=== PATIENT | female | born 1985 | race Two or more races ===

== ENCOUNTER 2022-05-14 18:35 | Emergency (ER) | payer OTHER, MEDICAID, SELFPAY ==
--- NOTE | ~2022-05-14 | CT_ITS ---
EXAMINATION: CT HEAD WITHOUT CONTRAST CLINICAL INFORMATION: Head injury. Pain. COMPARISON: None TECHNIQUE: Contiguous axial imaging was performed from the skull base to vertex without intravenous administration of contrast. Coronal and sagittal reformatted images are performed at CT scanner This CT examination was performed using dose optimization techniques as appropriate, variously including the following: *Automated exposure control *Adjustment of mA and/or kV according to patient size (this includes techniques or standardized protocols for targeted exams where dose is matched to indication/reason for exam; i.e. extremities or head) *Use of iterative reconstruction technique DLP: 704. mGy-cm FINDINGS: There is no evidence of acute intracranial hemorrhage or territorial infarction. No abnormal mass effect or midline shift is seen. De La Cruz to white matter differentiation is well preserved. No extra-axial fluid collections are identified. The ventricles are normal in size. There is no abnormal attenuation within the brain parenchyma. The osseous structures and soft tissues are normal. The mastoid air cells and visualized portions of the paranasal sinuses are well aerated. CT/CT head/brain wo con IMPRESSION: No acute intracranial pathology.
[2022-05-14 18:41] VITALS: BP 148/90; PULSE 92; O2SAT 99
[2022-05-14 21:10] VITALS: BP 114/59; PULSE 74; RESP 18; TEMP 36.8; O2SAT 98; BMI 49.8
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
[2022-05-15] MEDS: Ibuprofen 800 MG TABLET PO (00:11)
[2022-05-15] MEDS: Diphth,Pertus(ACell),Tet Adult 0.5 ML SYRINGE IM (00:12)
--- NOTE | 2022-05-15 00:15 | PC.NURSE ---
medicated per provider order, tdap given right deltoid, pt tolerated well.
[2022-05-15 00:31] VITALS: BP 125/63; PULSE 75; RESP 16; O2SAT 98
== END 2022-05-15 00:33 | disposition home or self-care (01) ==
LOC: HO.ED 05-15 00:26
PROVIDERS: Emergency Provider Emergency Medicine
DX: S06.0X0A Concussion without loss of consciousness, initial encounter (principal); S01.112A Laceration without foreign body of left eyelid and periocular area, initial encounter; W20.8XXA Other cause of strike by thrown, projected or falling object, initial encounter; Y93.89 Activity, other specified; Y92.832 Beach as the place of occurrence of the external cause; Y99.8 Other external cause status
CPT/HCPCS: 12011; 70450; 90471; 90715; 99284

== ENCOUNTER 2022-11-11 18:36 | Emergency (ER) | payer MEDICAID, SELFPAY ==
[2022-11-11 19:33] VITALS: BP 152/101; PULSE 78; RESP 18; TEMP 36.6; O2SAT 99; BMI 51.5
--- NOTE | 2022-11-11 19:34 | ED.HA ---
HPI - Headache General Chief Complaint: Headache <FARHANA Hernandez - Last Filed: 11/11/22 19:39> Stated Complaint: migraine <FARHANA Hernandez Last Filed: 11/11/22 19:39> Time Seen by Provider: 11/11/22 21:01 <FARHANA Hernandez - Last Filed: 11/11/22 19:39> Source: patient <Katherine Sanchez NP - Last Filed: 11/12/22 01:25> Mode of arrival: ambulatory <Katherine Sanchez NP - Last Filed: 11/12/22 01:25> Limitations: no limitations <Katherine Sanchez NP - Last Filed: 11/12/22 01:25> History of Present Illness HPI Narrative: 37-year-old female presents with a migraine headache since Friday. She has been taking Topamax with poor effect. She states to have photosensitivity, sensitivity to sound, nausea vomiting and difficulty sleeping because of the pain. This headache is consistent with prior headaches. <Katherine Sanchez NP - Last Filed: 11/12/22 01:25> MD elicited complaint: migraine <DAVID Maria Last Filed: 11/12/22 01:25> Onset (ago): day(s) <DAVID Maria Last Filed: 11/12/22 01:25> Onset description: gradually <DAVID Maria Last Filed: 11/12/22 01:25> Location: generalized <Katherine Sanchez NP - Last Filed: 11/12/22 01:25> Severity: severe <Katherine Sanchez NP - Last Filed: 11/12/22 01:25> Pain scale (0-10): 10 <DAVID Maria Last Filed: 11/12/22 01:25> Quality & Timing: throbbing, pulsatile, steady, squeezing, constant, progressively worsening and similar to previous headaches <Katherine Sanchez NP - Last Filed: 11/12/22 01:25> Exacerbating factors: movement of head/neck, light and noise <DAVID Maria Last Filed: 11/12/22 01:25> Relieving factors: nothing <DAVID Maria Last Filed: 11/12/22 01:25> Context: occurred at rest <DAVID Maria Last Filed: 11/12/22 01:25> Associated symptoms: nausea, vomiting, photophobia and sensitivity to sound <DAVID Maria Last Filed: 11/12/22 01:25> Treatments prior to arrival: acetaminophen, ibuprofen, prescription analgesic and migraine medication <DAVID Maria Last Filed: 11/12/22 01:25> Related Data Home Medications: Previous Rx's Medication Instructions Recorded sumatriptan succinate 50 mg tablet See Rx Instructions PO .COMPLEX 11/11/22 (Imitrex) #14 tabs <FARHANA Hernandez - Last Filed: 11/11/22 19:39> Allergies/Adverse Reactions: Allergies Allergy/AdvReac Type Severity Reaction Status Date / Time shrimp Allergy Severe ANAPHYLAXIS Verified 05/14/22 21:08 <FARHANA Hernandez Last Filed: 11/11/22 19:39> Review of Systems Review of Systems: Constitutional: No Fever, No Chills ENT/Mouth: Positive photosensitivity, positive sound sensitivity, No Ear Pain, No Hoarseness, No sore throat Eyes: No Eye Pain, No Swelling, No Redness, No Foreign Body Cardiovascular: No Chest Pain, No SOB Respiratory: No Cough, No Dyspnea Gastrointestinal: Positive Nausea, positive Vomiting, No Diarrhea, No abdominal Pain Genitourinary: No Dysuria, No Hematuria Musculoskeletal: No joint pain, No Myalgias, No Joint Swelling Skin: No Skin lacerations, No rash Neuro: No Weakness, No Numbness, No Paresthesias, No Loss of Consciousness, No Dizziness, positive migraine Headache <DAVID Maria Last Filed: 11/12/22 01:25> Yes all other systems are reviewed and are negative <DAVID Maria Last Filed: 11/12/22 01:25> PMFSH Past Medical History Attestation statement: The following information was validated with the patient. <DAVID Maria Last Filed: 11/12/22 01:25> Source: old records reviewed <DAVID Maria Last Filed: 11/12/22 01:25> Social History Social History: Social History Patient Tobacco Use Status: Never used Tobacco Advance Directives: No Advance Directives Information Provided: Yes <FARHANA Hernandez - Last Filed: 11/11/22 19:39> Physical Exam Vital Signs: Vital Signs: Last Vital Signs Temp 97.8 F 11/11/22 19:33 Pulse 52 11/11/22 21:50 Resp 32 H 11/11/22 21:50 BP 148/94 H 11/11/22 21:50 Pulse Ox 98 11/11/22 21:12 O2 Del Method 11/11/22 21:12 BMI result Body Mass Index 51.5 <FARHANA Hernandez - Last Filed: 11/11/22 19:39> Vital Signs: Last Vital Signs Temp 97.8 F 11/11/22 19:33 Pulse 52 11/11/22 21:50 Resp 32 H 11/11/22 21:50 BP 148/94 H 11/11/22 21:50 Pulse Ox 98 11/11/22 21:12 O2 Del Method 11/11/22 21:12 BMI result Body Mass Index 51.5 <Katherine Sanchez NP - Last Filed: 11/12/22 01:25> Appearance: Alert. Oriented X3. Moderate distress. Eyes: Pupils equal, round and reactive to light. ENT: Pharynx normal. Neck: Normal inspection. Neck supple. CVS: Normal heart rate and rhythm. Pulses normal. Respiratory: No respiratory distress. Breath sounds normal. Abdomen: Soft and nontender. Skin: Skin warm and dry. Normal skin color. Normal skin turgor. Extremities: Gait well balanced well coordinated. Neuro: No motor deficit. No sensory deficit. Cranial nerves 2-12 intact. <Katherine Sanchez NP - Last Filed: 11/12/22 01:25> Course Course Course Narrative: RME--37 yo F w/PMHx migraines c/o Migraine LOPEZ x 1 week w/assoc nausea and room spinning dizziness, worse with head movement. Takes Topamax w/o relief. Took Motrin w/o relief at 1400. Denies visual loss, vomiting, weakness HTNsive in triage, wearing sunglasses during eval, ambulating with steady gait Labs, PO Fioicet and PO Meclizine ordered <FARHANA Hernandez - Last Filed: 11/11/22 19:39> RME--37 yo F w/PMHx migraines c/o Migraine LOPEZ x 1 week w/assoc nausea and room spinning dizziness, worse with head movement. Takes Topamax w/o relief. Took Motrin w/o relief at 1400. Denies visual loss, vomiting, weakness HTNsive in triage, wearing sunglasses during eval, ambulating with steady gait Labs, PO Fioicet and PO Meclizine ordered 37-year-old female presents with migraine for 1 week. Considering that this migraine is consistent with prior, I do not feel CT scan is indicated at this time. Will order migraine medications, Reglan, fluids, Benadryl, dexamethasone. I do feel that this patient should follow-up with primary care physician as Topamax is ineffective for this patient's migraines. Patient is afebrile, appears nontoxic, neurovascularly intact, no pain on extraocular movements, no nystagmus. No nuchal rigidity, no vertebral tenderness or step-offs. No indication of meningeal signs. 22:44 patient feels better after medication regimen. Will give prescription for Imitrex and plan of care discharge home. Patient verbalized understanding of and agrees to plan of care. Verbalized understanding of signs symptoms indicating need for emergent intervention. Please note, vital signs at 21:50 indicate a respiration rate of 32. This is inaccurate. Upon discharge, patient had even unlabored respirations at 18 respirations per minute. <Katherine Sanchez NP - Last Filed: 11/12/22 01:25> Medications Administered Discontinued Medications Generic Name Dose Route Start Last Admin Trade Name Freq PRN Reason Stop Dose Admin Acetaminophen/Butalbital/Caffeine 1 tab 11/11/22 19:36 11/11/22 20:58 Butalb/Acetamin/Caff 50/325/40 Tablet PO 11/11/22 19:37 1 tab ONCE ONE Administration Diphenhydramine HCl 25 mg 11/11/22 21:29 11/11/22 21:40 Diphenhydramine Hcl 50 Mg/Ml Vial IVPUSH 11/11/22 21:30 25 mg ONCE ONE Administration Sodium Chloride 1,000 mls @ 999 mls/hr 11/11/22 21:45 11/11/22 21:50 Ns IV 11/11/22 22:45 999 mls/hr .Q1H1M MIGUEL A Administration Ketorolac Tromethamine 30 mg 11/11/22 21:29 11/11/22 21:41 Ketorolac Tromethamine 30 Mg/Ml Vial IVPUSH 11/11/22 21:30 30 mg ONCE ONE Administration Meclizine HCl 25 mg 11/11/22 19:36 11/11/22 20:58 Meclizine Hcl 25 Mg Tablet PO 11/11/22 19:37 25 mg ONCE ONE Administration Metoclopramide HCl 10 mg 11/11/22 21:29 11/11/22 21:41 Metoclopramide Hcl 10 Mg/2 Ml Vial IVPUSH 11/11/22 21:30 10 mg ONCE ONE Administration Sumatriptan Succinate 6 mg 11/11/22 21:29 11/11/22 21:41 Sumatriptan Succinate 6 Mg/0.5 Ml Vial SUBCUT 11/11/22 21:30 6 mg ONCE ONE Administration <FARHANA Hernandez - Last Filed: 11/11/22 19:39> Medications Administered Discontinued Medications Generic Name Dose Route Start Last Admin Trade Name Andrewq PRN Reason Stop Dose Admin Acetaminophen/Butalbital/Caffeine 1 tab 11/11/22 19:36 11/11/22 20:58 Butalb/Acetamin/Caff 50/325/40 Tablet PO 11/11/22 19:37 1 tab ONCE ONE Administration Diphenhydramine HCl 25 mg 11/11/22 21:29 11/11/22 21:40 Diphenhydramine Hcl 50 Mg/Ml Vial IVPUSH 11/11/22 21:30 25 mg ONCE ONE Administration Sodium Chloride 1,000 mls @ 999 mls/hr 11/11/22 21:45 11/11/22 21:50 Ns IV 11/11/22 22:45 999 mls/hr .Q1H1M MIGUEL A Administration Ketorolac Tromethamine 30 mg 11/11/22 21:29 11/11/22 21:41 Ketorolac Tromethamine 30 Mg/Ml Vial IVPUSH 11/11/22 21:30 30 mg ONCE ONE Administration Meclizine HCl 25 mg 11/11/22 19:36 11/11/22 20:58 Meclizine Hcl 25 Mg Tablet PO 11/11/22 19:37 25 mg ONCE ONE Administration Metoclopramide HCl 10 mg 11/11/22 21:29 11/11/22 21:41 Metoclopramide Hcl 10 Mg/2 Ml Vial IVPUSH 11/11/22 21:30 10 mg ONCE ONE Administration Sumatriptan Succinate 6 mg 11/11/22 21:29 11/11/22 21:41 Sumatriptan Succinate 6 Mg/0.5 Ml Vial SUBCUT 11/11/22 21:30 6 mg ONCE ONE Administration <Katherine Sanchez NP - Last Filed: 11/12/22 01:25> Medical Decision Making Differential Diagnosis Differential Diagnoses: The differential diagnosis associated with the presentation includes <Katherine Sanchez NP - Last Filed: 11/12/22 01:25> Migraine <Katherine Sanchez NP - Last Filed: 11/12/22 01:25> Lab Data MDM Lab Attestation statement: I reviewed the patient's lab results. <Katherine Sanchez NP - Last Filed: 11/12/22 01:25> Result Diagrams: 11/11/22 19:55 11/11/22 19:55 <FARHANA Hernandez - Last Filed: 11/11/22 19:39> Labs: Lab Results 11/11/22 11/11/22 Range/Units 19:55 19:55 WBC 10.2 (4.8-10.8) X10*3/uL RBC 5.58 H (4.20-5.50) X10*6/uL Hgb 14.7 (12.0-16.0) g/dl Hct 47.0 (37.0-47.0) % MCV 84.2 (80.0-98.0) fL MCH 26.3 L (27.0-33.0) pg MCHC 31.3 (31.0-35.0) g/dl RDW 14.9 (11.0-16.0) % Plt Count 375 (160-400) X10*3/uL MPV 9.7 (9.4-12.3) fL Immature Gran % (Auto) 0.2 (0.0-0.4) % Neut % (Auto) 75.0 H (45-73) % Lymph % (Auto) 17.2 L (20-40) % [place] % (Auto) 5.1 (2-11) % Eos % (Auto) 2.2 (0-4) % Baso % (Auto) 0.3 (0-2) % Lymph # (Auto) 1.8 (1.2-4.9) X10*3/uL [place] # (Auto) 0.5 (0.1-1.2) X10*3/uL Eos # (Auto) 0.2 (0.0-0.4) X10*3/uL Baso # (Auto) 0.0 (0.0-0.2) X10*3/uL Abs Immat Gran (auto) 0.02 (0.00-0.03) X10*3/uL Absolute Neuts (auto) 7.7 (2.0-8.3) x10*3/uL Absolute Nucleated RBC 0.000 (0.0-0.012) X10*3/uL Nucleated RBC % (auto) 0.0 (0.0-0.2) /100WBC Sodium 141 (135-145) mmol/L Potassium 4.1 (3.3-5.1) mmol/L Chloride 108 (96-108) mmol/L Carbon Dioxide 24 (22-29) mmol/L Anion Gap 13 (12-20) BUN 11 (9-16) mg/dL Creatinine 0.85 (0.5-1.4) mg/dL Estim Creat Clear Calc 126.0 Estimated GFR > 60 Random Glucose 94 (60-115) mg/dL Calcium 9.4 (8.4-10.2) mg/dL <FARHANA Hernandez - Last Filed: 11/11/22 19:39> Lab Results 11/11/22 11/11/22 Range/Units 19:55 19:55 WBC 10.2 (4.8-10.8) X10*3/uL RBC 5.58 H (4.20-5.50) X10*6/uL Hgb 14.7 (12.0-16.0) g/dl Hct 47.0 (37.0-47.0) % MCV 84.2 (80.0-98.0) fL MCH 26.3 L (27.0-33.0) pg MCHC 31.3 (31.0-35.0) g/dl RDW 14.9 (11.0-16.0) % Plt Count 375 (160-400) X10*3/uL MPV 9.7 (9.4-12.3) fL Immature Gran % (Auto) 0.2 (0.0-0.4) % Neut % (Auto) 75.0 H (45-73) % Lymph % (Auto) 17.2 L (20-40) % [place] % (Auto) 5.1 (2-11) % Eos % (Auto) 2.2 (0-4) % Baso % (Auto) 0.3 (0-2) % Lymph # (Auto) 1.8 (1.2-4.9) X10*3/uL [place] # (Auto) 0.5 (0.1-1.2) X10*3/uL Eos # (Auto) 0.2 (0.0-0.4) X10*3/uL Baso # (Auto) 0.0 (0.0-0.2) X10*3/uL Abs Immat Gran (auto) 0.02 (0.00-0.03) X10*3/uL Absolute Neuts (auto) 7.7 (2.0-8.3) x10*3/uL Absolute Nucleated RBC 0.000 (0.0-0.012) X10*3/uL Nucleated RBC % (auto) 0.0 (0.0-0.2) /100WBC Sodium 141 (135-145) mmol/L Potassium 4.1 (3.3-5.1) mmol/L Chloride 108 (96-108) mmol/L Carbon Dioxide 24 (22-29) mmol/L Anion Gap 13 (12-20) BUN 11 (9-16) mg/dL Creatinine 0.85 (0.5-1.4) mg/dL Estim Creat Clear Calc 126.0 Estimated GFR > 60 Random Glucose 94 (60-115) mg/dL Calcium 9.4 (8.4-10.2) mg/dL <Katherine Sanchez NP - Last Filed: 11/12/22 01:25> External Record Review External record reviewed: Outpatient record and Prior outpatient labs <Katherine Sanchez NP - Last Filed: 11/12/22 01:25> Prescription Management I considered prescription management with: Pain Medication <Katherine Sanchez NP - Last Filed: 11/12/22 01:25> Discharge Plan Discharge Clinical Impression: Migraine <FARHANA Hernandez - Last Filed: 11/11/22 19:39> Patient Disposition: Home, Self-Care <FARHANA Hernandez - Last Filed: 11/11/22 19:39> Instructions: Migraine Headache (ED) <FARHANA Hernandez - Last Filed: 11/11/22 19:39> Additional Instructions: You were evaluated for migraine. I prescribed you Imitrex. Please follow the directions on this medication Consider following up with the primary care physician if migraines continue be uncontrolled. Thank you for choosing this emergency department for evaluation. Please follow-up with primary care physician as needed. Return to the emergency department for any new, concerning, or worsening symptoms. <FARHANA Hernandez - Last Filed: 11/11/22 19:39> Prescriptions: New sumatriptan succinate [Imitrex] 50 mg tablet See Rx Instructions .ROUTE .COMPLEX Qty: 14 0RF Rx Instructions: take 1 tab at onset of headache; if no relief may repeat 1 tab after at least 2 hrs; max = 4 tabs/24 hr <FARHANA Hernandez - Last Filed: 11/11/22 19:39> Stand Alone Forms: Work/School Release <FARHANA Hernandez - Last Filed: 11/11/22 19:39> Interventions: ED Discharge Assessment Last Done: 11/11/22 22:59 <FARHANA Hernandez - Last Filed: 11/11/22 19:39> Discharge Date/Time: 11/11/22 22:59 <FARHANA Hernandez - Last Filed: 11/11/22 19:39>
--- OUTSIDE RECORDS SUMMARY | 2022-11-11 19:45 | XMS_ITS | Continuity of Care Document ---
:1985 Author Organization [facility] Address [address] [facility], 3rd Floor, [address] [place] [id number]- Care Team Providers Name Role Phone Raiza Hayes DO Primary Care Physician Encounter [facility] Date(s): 07/11/22 - 08/10/22 [facility] [address] [facility], 3rd [facility], [address] [place] [id number] Allergies, Adverse Reactions, Alerts Substance Reaction Severity Status shellfish Active Shrimp Active Medications Motrin 600 mg oral tablet 600, mg, 1, tablet, By Mouth, 4 times a day, 20, 0, 0, 11/28/07 1:31:20, Print BROOKE Number, ADS OPPTHS, 65, Constant Indicator Start Date: 11/28/07 Status: OrderedPenicillin 250, mg, By Mouth, 4 times a day, 40, 0, 0, 11/28/07 1:25:52, Print BROOKE Number, ADS OPPTHS, 65, Constant Indicator Start Date: 11/28/07 Stop Date: 12/08/07 Status: Orderedtramadol 50 mg oral tablet 1 tablet, By Mouth, Every 12 hours, PRN for pain, # 12 tablet, 0 Refills, Maintenance, 07/13/14 9:03:37, Tablet Start Date: 07/13/14 Status: Ordered Patient Care team information PersonnelName: Raiza Hayes DO Address: Address: [address] [place] [id number]
--- OUTSIDE RECORDS SUMMARY | 2022-11-11 19:45 | XMS_ITS | Continuity of Care Document ---
:1985 Author Organization [address] [id number]- Care Team Providers Name Role Phone Raiza Hayes DO Primary Care Physician Encounter [facility] Date(s): 09/24/22 - 10/24/[address] [id number] Attending Physician: Sirisha Larry Admitting Physician: AdmtrSirisha Referring Physician: Admtr, Ar8 Allergies, Adverse Reactions, Alerts Substance Reaction Severity [...] 07/13/14 Status: Ordered Patient Care team information Care Team PersonnelName: Raiza Hayes DO Position: Reference Physician Member Role: PCP Address: Address: [address] [place] [id number] Care Team Related PersonsName: ALVINO ZAMAN Address: home [address] [place] [address] Name: NESSA ESCOBAR Address: home [address] [place] [address]
--- OUTSIDE RECORDS SUMMARY | 2022-11-11 19:45 | XMS_ITS | Continuity of Care Document ---
:1985 Author Organization [facility] Address [address] [place] [phone]- Care Team Providers Name Role Phone Raiza Hayes DO Primary Care Physician [id number] Date(s): 09/18/22 - 10/24/[address] [id number] Encounter Diagnosis Labyrinthine dysfunction, unspecified ear (Final) - Discharge Disposition: A-D/C Home Attending Physician: Raiza Hayes DO Admitting Physician: Raiza Hayes DO Referring Physician: Raiza Hayes DO Allergies, Adverse Reactions, Alerts Substance Reaction Severity [...] Reference Physician Member Role: PCP Address: Address: [address] [place] [id number]- Care Team Related PersonsName: ALVINO ZAMAN Address: [address] [address] Name: NESSA ESCOBAR Address: [place] [address]
[2022-11-11 20:07] LABS: Basophils Percent Auto 0.3 % (0-2); Eosinophils Absolute Auto 0.2 X10*3/uL (0.0-0.4); Eosinophils Percent Auto 2.2 % (0-4); Hemoglobin 14.7 g/dl (12.0-16.0); Imm Gran Abs Auto 0.02 X10*3/uL (0.00-0.03); Imm Gran Pct Auto 0.2 % (0.0-0.4); Lymphocytes Absolute Auto 1.8 X10*3/uL (1.2-4.9); Lymphocytes Percent Auto 17.2 % (20-40); MANUAL DIFF FLAG NO; Mean Corpuscular HGB Conc 31.3 g/dl (31.0-35.0); Mean Corpuscular Hemoglobin 26.3 pg (27.0-33.0); Mean Corpuscular Volume 84.2 fL (80.0-98.0); Mean Platelet Volume 9.7 fL (9.4-12.3); Monocytes Absolute Auto 0.5 X10*3/uL (0.1-1.2); Monocytes Percent Auto 5.1 % (2-11); Neutrophils Absolute Auto 7.7 x10*3/uL (2.0-8.3); Platelet Count 375 X10*3/uL (160-400); Red Blood Count 5.58 X10*6/uL (4.20-5.50); Red Cell Distribution Width 14.9 % (11.0-16.0); White Blood Count 10.2 X10*3/uL (4.8-10.8)
[2022-11-11 20:21] LABS: Anion Gap 13 (12-20); Blood Urea Nitrogen 11 mg/dL (9-16); Calcium 9.4 mg/dL (8.4-10.2); Carbon Dioxide 24 mmol/L (22-29); Chloride 108 mmol/L (96-108); Estimated Glomerular Filt Rate > 60; Glucose Random 94 mg/dL (60-115); Potassium 4.1 mmol/L (3.3-5.1); Sodium 141 mmol/L (135-145)
[2022-11-11] MEDS: Meclizine HCl 25 MG TABLET PO (20:58)
[2022-11-11] MEDS: Butalb/Acetamin/Caff 50/325/40 TABLET 1 TAB PO (20:58)
[2022-11-11 21:12] VITALS: BP 143/94; PULSE 63; O2SAT 98
[2022-11-11] MEDS: diphenhydrAMINE HCL 50 MG/ML VIAL 25 MG IVPUSH (21:40)
[2022-11-11] MEDS: Ketorolac Tromethamine 30 MG/ML VIAL IVPUSH (21:41)
[2022-11-11] MEDS: Metoclopramide HCl 10 MG/2 ML VIAL IVPUSH (21:41)
[2022-11-11] MEDS: SUMAtriptan succinate 6 MG/0.5 ML VIAL SUBCUT (21:41)
[2022-11-11 21:50] VITALS: BP 148/94; PULSE 52; RESP 32
[2022-11-11] MEDS: 0.9 % Sodium Chloride 1,000 ML 999 ML IV (21:50)
== END 2022-11-11 22:59 | disposition home or self-care (01) ==
PROVIDERS: Physician Assistant; Emergency Provider Internal Medicine
DX: G43.909 Migraine, unspecified, not intractable, without status migrainosus (principal)
CPT/HCPCS: 36415; 80048; 85025; 96372; 96374; 96375; 99284; J1200; J1885; J2765; J3030

== ENCOUNTER 2023-01-08 16:04 | Emergency (ER) | payer MEDICAID, SELFPAY ==
[2023-01-08 17:23] VITALS: BP 109/64; PULSE 58; RESP 16; TEMP 37.1; O2SAT 96; BMI 50.6
--- NOTE | 2023-01-08 17:25 | ED_ITS ---
HPI - Ear Problem General Chief complaint: Ear Problems Stated complaint: Ear pain sent by primary care Time Seen by Provider: 01/08/23 17:28 Source: patient Mode of arrival: ambulatory Limitations: no limitations History of Present Illness HPI Narrative: 37-year-old female presents to the ER for evaluation of right ear pain, right- sided hearing loss and drainage from the right ear that started today. Patient recently had a sinus infection and COVID 19. She was not given antibiotics. She reports new onset of the pain and hearing loss today. She still feels some sinus pressure but overall improved. No fevers. MD Complaint: ear pain, ear discharge and decreased hearing Location: right ear Duration: constant Severity: moderate Relieving factors: nothing Exacerbating factors: palpation Context: recent illness Discharge from ear: yes - purulent Associated symptoms ear: decreased hearing and external ear tenderness Treatment prior to arrival: none Related Data Previous Rx's Medication Instructions Recorded sumatriptan succinate 50 mg tablet See Rx Instructions PO .COMPLEX 11/11/22 (Imitrex) #14 tabs amoxicillin 875 mg-potassium 1 tab PO BID #20 tabs 01/08/23 clavulanate 125 mg tablet ciprofloxacin 0.3 %-dexamethasone 4 drp otic (ears) BID 7 days #7.5 01/08/23 0.1 % ear drops,suspension mL (Ciprodex) Allergies Allergy/AdvReac Type Severity Reaction Status Date / Time shrimp Allergy Severe ANAPHYLAXIS Verified 01/08/23 17:23 Review of Systems Review of Systems: Yes all other systems are reviewed and are negative PMFSH Social History Social History Patient Tobacco Use Status: Never used Tobacco Advance Directives: No Advance Directives Information Provided: No Physical Exam Vital Signs: Vital Signs: Last Vital Signs Temp 98.8 F 01/08/23 17:23 Pulse 58 01/08/23 17:23 Resp 16 01/08/23 17:23 BP 109/64 01/08/23 17:23 Pulse Ox 96 01/08/23 17:23 O2 Del Method 01/08/23 17:23 BMI result Body Mass Index 50.6 Appearance: Alert. Oriented X3. No acute distress. HEENT: normal external inspection. Left EAC and tympanic membrane are normal. Right EAC is swollen and tender, tympanic membrane is erythematous, bulging with loss of landmarks. CVS: Normal heart rate and rhythm. Pulses normal. Respiratory: No respiratory distress. Lungs are clear throughout Skin: Skin warm and dry. Normal skin color. Normal skin turgor. No rashes. Extremities: Normal inspection x4. Neuro: Oriented X 3. No motor deficit. No sensory deficit. Hearing is grossly normal. Medical Decision Making Medical Decision Making MDM Narrative: 37-year-old female presents to the ER for evaluation of right-sided ear pain, discharge or decreased hearing that started today. Exam and clinical presentation are consistent with both a outer and inner ear infection. Will plan to discharge with topical and oral antibiotics. There is no evidence of mastoiditis on examination. She is not diabetic. Symptoms started today. Comfortable with discharge home, outpatient follow-up. Differential Diagnosis Differential Diagnoses: The differential diagnosis associated with the presentation includes Otitis media, otitis externa, foreign body, cerumen impaction, cholesteatoma, mastoiditis External Record Review External record reviewed: Office record, Outpatient record and Prior outpatient labs Prescription Management I considered prescription management with: Antibiotic Critical Care Time Critical Care Time Critical Care Time: No Discharge Plan Discharge Clinical Impression: Otitis externa, Otitis media Patient Disposition: Home, Self-Care Instructions: Otitis Externa (ED), Ear Infection (ED) Additional Instructions: Do not get water in your ear. Use the prescribed antibiotics as directed. Follow up with your primary care doctor. Prescriptions: New amoxicillin-pot clavulanate 875-125 mg tablet 1 tab PO BID Qty: 20 0RF ciprofloxacin-dexamethasone [Ciprodex] 0.3-0.1 % drops,suspension 4 drp otic (ears) BID 7 Days Qty: 7.5 0RF No Action sumatriptan succinate [Imitrex] 50 mg tablet See Rx Instructions .ROUTE .COMPLEX Qty: 14 0RF Rx Instructions: take 1 tab at onset of headache; if no relief may repeat 1 tab after at least 2 hrs; max = 4 tabs/24 hr Interventions: ED Discharge Assessment Last Done: 01/08/23 17:36 Discharge Date/Time: 01/08/23 17:37
== END 2023-01-08 17:37 | disposition home or self-care (01) ==
PROVIDERS: Emergency Provider Student in an Organized Health Care Education/Training Program; PCP Family Medicine
DX: H66.91 Otitis media, unspecified, right ear (principal); H60.91 Unspecified otitis externa, right ear
CPT/HCPCS: 99282; 99283